=== PATIENT | male | born 1970 | race African-American/Black ===

== ENCOUNTER 2022-11-03 03:01 | Emergency (ER) | payer BC, SELFPAY ==
[2022-11-03] MEDS ORDERED: Ketorolac Tromethamine 30 MG/ML VIAL ONE (04:19)
== END 2022-11-03 05:51 | disposition home or self-care (01) ==
LOC: ERS 03:01
DX: M25.512 Pain in left shoulder (principal); Z87.891 Personal history of nicotine dependence
CPT/HCPCS: 96372; J1885